=== PATIENT | female | born 1990 ===

== ENCOUNTER → 2020-06-30 14:19 | Outpatient (CLI) | payer OTHER, MEDICAID, SELFPAY ==
--- NOTE | 2020-06-30 | DI.US.S_ITS ---
PROCEDURE: US OB >= 14 WEEKS FETUS INDICATIONS: ANATOMY OUTSIDE/PRIOR DATING DATA: Last menstrual period (LMP): Unknown. LMP-based estimated date of delivery (JUDIE): Unknown . First dating scan (date and location): 06/30/20 . Estimated date of delivery (JUDIE) from first dating scan: 11/15/20 . TECHNIQUE: Real-time scanning was performed of the fetus, with image documentation and biometric measurements. Endovaginal scanning: Not performed COMPARISON: None. FINDINGS: General: A single living intrauterine gestation is present. Presentation: Transverse. Placenta: Placental position is anterior , without previa. Amniotic fluid index: 15.9 cm, normal range is 5-24 cm. heart rate: 141 beats per minute. Maternal cervical canal: 4.2 cm long. Normal lower limit is 2.5 cm. biometrics: Biparietal diameter: 4.7 cm, 20 weeks 2 days Head circumference: 18.0 cm, 20 weeks 3 days Abdominal circumference: 16.2 cm, 21 weeks 2 days Femur length: 3.0 cm, 19 weeks 2 days Estimated gestational age from initial scan: not applicable. Composite gestational age from present scan: 20 weeks 2 days Estimated weight: 350 g Measurement variability for biometric dating: +/- 7 days from 14 weeks to 15 weeks 6 days gestation, +/- 10 days from 16 weeks to 21 weeks 6 days gestation, +/- 2 weeks from 22 weeks to 27 weeks 6 days gestation, +/- 3 weeks for 28 weeks gestation or later. weight reference: 4500 g or EFW >90/95% is considered macrosomia or large for gestational age. EFW <10% is small for gestational age. EFW 5% or less is considered intra-uterine growth restriction. Anatomic survey: Neuro: Ventricles are non-dilated at less than 10 mm. Cisterna magna is normal at 3-11 mm. Cerebellum is normal in size and morphology. Nuchal skin fold: Normal at less than 6 mm between 14-21 weeks gestational age. Face: Nose and lips, facial profile are normal. Spine: No evidence for spina bifida. Heart: 4-chambered heart is present, with normal ventricular outflow tracts. Diaphragm: Diaphragm is intact. Stomach: Left-sided stomach is present. Kidneys: No hydronephrosis. Normal is less than 5 mm in 2nd trimester, less than 7 mm in 3rd trimester. Cord: 3-vessel cord has orthotopic insertion. Bladder: Normal in size. Extremities: All 4 extremities identified. IMPRESSION: Single living intrauterine fetus in transverse presentation with gestational age measuring 20 weeks 2 days by today's ultrasound measurements. Growth assessment precluded by lack of LMP or 1st trimester dating ultrasound. If clinically warranted, a follow-up growth assessment ultrasound could be performed in 3-4 weeks facial profile not well seen secondary to gestational lie. Recommend follow-up. Otherwise, normal anatomic survey Dictated by: Papi Walker M.D. on 06/30/2020 at 16:33 Approved by: Papi Walker M.D. on 06/30/2020 at 16:37
== END ==
PROVIDERS: Referring Provider Nurse Practitioner Obstetrics & Gynecology; Visit Provider Nurse Practitioner Obstetrics & Gynecology
DX: Z36.89 Encounter for other specified antenatal screening (principal); Z3A.20 20 weeks gestation of pregnancy
CPT/HCPCS: 76811

== ENCOUNTER → 2020-07-14 09:12 | Outpatient (CLI) | payer OTHER, MEDICAID, SELFPAY ==
--- NOTE | 2020-07-14 | DI.US.S_ITS ---
PROCEDURE: US OB FOLLOW UP INDICATIONS: FOLLOW UP FACIAL PROFILE OUTSIDE/PRIOR DATING DATA: Last menstrual period (LMP): Unknown. LMP-based estimated date of delivery (JUDIE): Under known. First dating scan (date and location): 06/30/2020. Estimated date of delivery (JUDIE) from first dating scan: 11/15/2020. TECHNIQUE: Real-time scanning was performed of the fetus, with image documentation. Endovaginal scanning: Not performed. COMPARISON: None. FINDINGS: A single living intrauterine gestation is present. Presentation: Vertex. spine is towards maternal right side. Placenta: Placental position is anterior, without previa. Amniotic fluid index: 16.2 cm, normal range is 5-24 cm. heart rate: 157 beats per minute. Maternal cervical canal: 4.2 cm long. Normal lower limit is 2.5 cm. Estimated gestational age from initial scan: 22 weeks, 2 days. facial profile is visualized and is within normal limits on the current study.. IMPRESSION: 1. Single live intrauterine with fetus in cephalic presentation. heart rate is 157 beats per minute. Normal amount of amniotic fluid. Normal cervical canal length. 2. facial profile is visualized on the current study and is within normal limits. Dictated by: Jonah Orozco M.D. on 07/14/2020 at 14:33 Approved by: Jonah Orozco M.D. on 07/14/2020 at 14:35
== END ==
PROVIDERS: Referring Provider Nurse Practitioner Obstetrics & Gynecology; Visit Provider Nurse Practitioner Obstetrics & Gynecology
DX: Z36.2 Encounter for other antenatal screening follow-up (principal); Z3A.22 22 weeks gestation of pregnancy
CPT/HCPCS: 76816

== ENCOUNTER → 2020-09-29 13:21 | Outpatient (ROUT) | payer OTHER, MEDICAID, SELFPAY ==
[2020-09-29 13:36] LABS: Hematocrit 32.9 % (36-46); Hemoglobin 11.1 g/dL (12.0-16.0); Mean Corpuscular HGB Conc 33.8 % (30-36); Mean Corpuscular Hemoglobin 29.1 PG (26-34); Platelet Count 165 X10^3/uL (150-400); Red Blood Cell Count 3.83 X10^6/uL (4.0-5.2); Red Cell Distribution Width 13.2 % (11.6-14.8); White Blood Cell Count 16.2 X10^3/uL (4.5-11.0)
[2020-09-29 13:49] LABS: GTT (PREG) 1 Hour PP 50gm Dose 201 mg/dL (76-139)
== END ==
PROVIDERS: Visit Provider Nurse Practitioner Obstetrics & Gynecology
DX: Z34.90 Encounter for supervision of normal pregnancy, unspecified, unspecified trimester (principal); Z13.1 Encounter for screening for diabetes mellitus; Z3A.32 32 weeks gestation of pregnancy
CPT/HCPCS: 82950; 85027

== ENCOUNTER → 2020-10-15 18:31 | Outpatient (ROUT) | payer OTHER, MEDICAID, SELFPAY | PROVIDERS: Visit Provider Nurse Practitioner Obstetrics & Gynecology | DX: Z34.90 Encounter for supervision of normal pregnancy, unspecified, unspecified trimester (principal); Z36.85 Encounter for antenatal screening for Streptococcus B; Z3A.35 35 weeks gestation of pregnancy | CPT/HCPCS: 87081 ==

== ENCOUNTER 2020-11-07 21:36 | Inpatient (IN) | payer OTHER, MEDICAID, SELFPAY ==
--- NOTE | 2020-11-07 21:49 | P.HPOB_ITS ---
OB HPI Date/Time Date of admission: 11/07/20 Date Patient Seen: 11/07/20 Time Patient Seen: 21:42 History of Present Condition Chief complaint: : 4 Para: 2 Estimated Date of Delivery: 11/17/20 Estimated Gestational Age (weeks): 38.4 Narrative: Anabela Wolf is a 29 year old female her for evaluation of labor. Has been che mildly all day with a few really strong ones recently. Concerned because she was 4cm in clinic yesterday. Feeling lots of FM and has noticed some bloody show tonight. No LOF. care w/ CNM complicated by GDMA1, well controlled. Planning low intervention . History of Present care: good care, initiated at week # (11), number of visits (8) and pounds weight gain (39) Dating criteria: based on 1st trimester US only Ultrasounds: normal mid trimester US Obstetrical complications: gestational diabetes (GDMA1) Medical complications: none Preadmission Labs Blood type: O (+) positive -: Antibody screen: negative, GBS status: negative, HBsAG: negative, HIV: negative and RPR/VDLR: negative -: Chlamydia screen: not detected and Gonorrhea screen: not detected -: Rubella: immune HCT: 32.9 HCAB: negative 1 hr GTT: 201 Narrative: Declined 3hr gtt. Started QID BGs at 33wks and was 100% diet controlled Prior (ies) History: 03/10/08: EAB 11/18/12: NSVB @39wks, 17hr labor, epidural, 7#8oz female, no complications 07/18/18: NSVB @ 39wks, 8 hr labor, unmedicated, 8# female, no complications Evaluation Evaluation Baseline heart rate: 155 Variability: Moderate (11-25) monitor accelerations: Present monitor decelerations: Absent Contraction Frequency (minutes): 4 Uterine Contraction Intensity: Moderate Category of Tracing: Reactive Status: Category l Cervical dilation (cm): 5 Cervical effacement (%): 75 station: -3 [facility] Medical History (Updated 11/07/20 @ 23:07 by Qing Connell CNM) Jaw fracture Surgical History (Updated 11/07/20 @ 23:07 by Qing Connell CNM) History of mandibular surgery Social History (Updated 11/07/20 @ 23:09 by Qing Connell CNM) marital status: number of children: 2 household members: spouse and children lives independently: Yes caregiver/support person: No housing: house occupational status: employed current occupational exposures/hazards: No do you feel safe at home: Yes Meds Home Medications and Allergies Home Medications Medication Instructions Recorded Confirmed Type PNV cmb#95-ferrous fumarate-FA tab PO 11/07/20 History [] Allergies Allergy/AdvReac Type Severity Reaction Status Date / Time No Known Drug Allergies Allergy Verified 11/07/20 22:47 Review of Systems Review of Systems ROS: Yes All systems reviewed with the patient and are negative except as other [place] documented Exam Vital Signs (past 8 hours): BP 113/56, HR-86bpm, T36.7C Temporal Resp Effort & Inspection: normal respiratory effort Auscultation: clear to auscultation bilaterally Cardio Rate: regular rate Rhythm: regular rhythm Heart Sounds: S1 normal and S2 normal Presentation: vertex Estimated Weight (lbs): 8 Objective Labs Result Diagrams: 11/07/20 22:10 Assessment and Plan Assessment and Plan Assessment and Plan narrative: A:Term multipara @ term Approaching active labor GDMA1 Cat I FHR P: Admit, routine orders w/ CBC, T&S, POC glucose and COVID19 swab. Labor support, PRN. Reassess in 2-4 hours. Will consider AROM if minimal progress at that time. OB back-up/ aware of patient admit, status and plan of care.
[2020-11-07 22:42] LABS: Add Manual Diff / Slide Review NO; Basophils Absolute Auto 100 /uL (0-100); Basophils Percent Auto 0.4 % (0-2); Eosinophils Absolute Auto 0 /uL (0-450); Eosinophils Percent Auto 0.3 % (2-4); Hematocrit 34.1 % (36-46); Hemoglobin 11.4 g/dL (12.0-16.0); Lymphocytes Absolute Auto 2500 /uL (1100-4500); Lymphocytes Percent Auto 17.3 % (25-40); Mean Corpuscular HGB Conc 33.3 % (30-36); Mean Corpuscular Hemoglobin 28.2 PG (26-34); Mean Corpuscular Volume 84.5 fL (80-100); Monocytes Absolute Auto 1000 /uL (0-900); Neutrophils Absolute Auto 10800 /uL (1500-7000); Platelet Count 176 X10^3/uL (150-400); Red Blood Cell Count 4.03 X10^6/uL (4.0-5.2); Red Cell Distribution Width 15.1 % (11.6-14.8); White Blood Cell Count 14.3 X10^3/uL (4.5-11.0)
[2020-11-07 22:49] LABS: COVID19 -Nasal RAPID Negative (Negative)
[2020-11-08 00:32] VITALS: BP 113/56
[2020-11-08] MEDS: OXYTOCIN PREMIX 30 UNIT/500 ML PLAST..BAG IV (03:45)
--- NOTE | 2020-11-08 03:53 | PM.OBPRVD ---
Events: Gestational Diabetes (GDMA1) Labor & Delivery Delivery date: 11/08/20 Intrapartal Events: None Cervical ripening method: none Induction method: none Delivery augmentation: rupture of membranes Delivery monitor: external FHT and external uterine Route of delivery: Episiotomy description: None L&D Laceration Description: None Estimated blood loss (mL): 250 Anesthesia Type: Other (Nitrous Oxide x 5 minutes prior to delivery) Narrative: AROM, clear fluid @ 0050 with rapid progression of labor. Patient labored well in the tub and on the bed on hands and knees. Spontaneous urge to push while seated on toilet. Pt was assisted to bed in left side lying position for 2nd stage. Reassuring FHTs by intermittent auscultation throughout first and second stage. Pt requested nitorus which was initiated immediately prior to . NSVB of a vigorous baby girl in DIMITRIOS position w/ no nuchal cord and easy delivery of the shoulders. 30 units of pitocin in 500mL LR was started at 300mL/hr for AMTSL. After cessation of pulsation, the cord was double clamped by CNM and cut by support sister. Hospital cord blood sample was collected. Gentle cord traction and maternal push led to spontaneous, Schultze delivery of an apparently intact placenta membranes and 3VC. Fundus massaged firm. Intact vagina and perineum. QBL 250mL. Both mother and baby stable and skin to skin as I left the room. [place] Baby 1: gender: Female Presentation: vertex Position: Left Occiput Anterior Placenta delivery description: Spontaneous Cord Vessel Description: 3 Vessels score (1 min): 9 score (5 min): 9 Plan for aftercare: Routine care
[2020-11-08] MEDS: KETOROLAC 30 MG/ML VIAL IV (06:03)
[2020-11-08] MEDS: DERMOPLAST SPRAY 20% 60 ML 1 SPRAY TOP (06:20)
[2020-11-08] MEDS: LANOLIN OINT 7 GM 1 APPLIC TOP (06:21)
[2020-11-08] MEDS: ACETAMINOPHEN 325 MG TABLET 650 MG PO ×3 (08:24→20:14)
[2020-11-08] MEDS: OXYCODONE IR 5 MG TABLET PO (08:25)
[2020-11-08] MEDS: DOCUSATE 100 MG CAPSULE PO (08:25)
[2020-11-08] MEDS: PRENATAL VIT,CALC/IRON/FOLIC 1 TABLET 1 TAB PO (08:25)
[2020-11-08] MEDS: IBUPROFEN 600 MG TABLET PO ×2 (14:41→20:13)
[2020-11-09] MEDS: PRENATAL VIT,CALC/IRON/FOLIC 1 TABLET 1 TAB PO (07:57)
[2020-11-09] MEDS: DOCUSATE 100 MG CAPSULE PO (07:57)
[2020-11-09] MEDS: IBUPROFEN 600 MG TABLET PO (07:57)
[2020-11-09] MEDS: ACETAMINOPHEN 325 MG TABLET 650 MG PO (07:58)
[2020-11-09 08:34] VITALS: BP 108/77; PULSE 62; RESP 16; TEMP 36.7
--- NOTE | 2020-11-09 08:35 | PM.OBDS.1 ---
Discharge Providers Provider Date of admission: 11/07/20 21:36 Discharge Date: 11/09/20 Consults: 11/09/20 03:51 Consult to Associate Professor Of Literacy Routine Comment: Discharge provider: Qing Connell CNM Summary Discharge Diagnosis (1) Delivery without complication during current hospitalization: Status: Acute Problem Details: Routine . Pt sitting up in bed her daughter. Voiding, ambulating and independently. Tolerating general diet. Primarily cramping pain with , well controlled w/ ibuprofen and Tylenol. Vaginal bleeding is light, with no clots. She is eager for discharge to home. Time Spent with Patient Time attestation: Total time spent providing and/or coordinating discharge services: 30 Objective Labs Result Diagrams: 11/07/20 22:10 Exam Vital Signs (past 8 hours): BP 108/77, [id number], RR16/min, T98.1F Temporal Other: Fundus firm @ u-1, lochia light, no clots. Perineum intact, minimal edema. Discharge Plan Discharge Plan Patient Disposition: Home Discharge orders & Medications Prescriptions: New acetaminophen 325 mg Tablet 650 mg PO Q6HR PRN (Reason: Pain, Mild (1-3)) 14 Days Qty: 60 RF: 0 ibuprofen 600 mg Tablet 600 mg PO Q6HR PRN (Reason: Pain, Mild (1-3)) 14 Days Qty: 60 RF: 0 Continued PNV cmb#95-ferrous fumarate-FA [] 28 mg iron- 800 mcg tablet 1 tab PO DAILY RF: 0 Follow up/Referrals: Qing Connell CNM [[employer]] - (Foloow-up by Telehealth 11/22/20 @ 11am Follow-up in office 12/12/20 @ 11am) Diet/Activity/Treatments Diet: Regular Activity: pelvic rest x 6 weeks Skin/Wound/Dressing Care Report to your healthcare provider any signs of infection, such as:: chills, fever, increased pain, unusual drainage and unusual redness Visit Report/Discharge Packet Instructions: DI for Depression
== END 2020-11-09 10:20 | disposition home or self-care (01) | DRG 560 ==
PROVIDERS: Admitting Provider Nurse Practitioner Obstetrics & Gynecology; Referring Provider Nurse Practitioner Obstetrics & Gynecology; Visit Provider Nurse Practitioner Obstetrics & Gynecology
DX: O24.420 Gestational diabetes mellitus in childbirth, diet controlled (principal); Z3A.38 38 weeks gestation of pregnancy; Z37.0 Single live birth; Z20.822 Contact with and (suspected) exposure to COVID-19
CPT/HCPCS: 36415; 59050; 85025; 86850; 86900; 86901; 87635; C9803; G0379; J1885; J2590

== ENCOUNTER 2020-12-07 09:51 | Emergency (ER) | payer OTHER, MEDICAID, SELFPAY ==
--- NOTE | 2020-12-07 09:53 | DI.US.S_ITS ---
PROCEDURE: US PELVIC COMPLETE INDICATIONS: BLEEDING 1 MONTH POST TECHNIQUE: Real-time scanning was performed of the pelvic organs, with image documentation. Additional endovaginal scanning was necessary due to incomplete visualization of the adnexal and endometrial structures by transabdominal scanning. COMPARISON: None. FINDINGS: Uterus: Uterus is normal in size at 10.2 x 5.2 x 8.3 cm. The endometrium measures 13 mm in combined thickness, and appears heterogeneous. Ovaries: Within normal limits bilaterally Other: No pathologic free abdominal or pelvic fluid. IMPRESSION: Heterogeneous endometrium, possibly indicating retained products of conception. Follow-up ultrasound is recommended to ensure resolution and to exclude underlying hyperplasia/neoplasm. Dictated by: Priya Burgos M.D. on 12/07/2020 at 10:00 Approved by: Priya Burgos M.D. on 12/07/2020 at 10:01
[2020-12-07 09:57] VITALS: BP 122/77; PULSE 68; RESP 16; TEMP 36.3; O2SAT 99; BMI 33.3
--- NOTE | 2020-12-07 10:01 | ED.GENADULT ---
HPI - General Adult General Chief complaint: OB/Uterine Contractions Stated complaint: POST- BLEEDING AND CLOTTING Time Seen by Provider: 12/07/20 09:52 Source: patient Mode of arrival: Ambulatory Limitations: no limitations History of Present Illness HPI narrative: Patient is a 29-year-old female who is approximately 4 weeks status post spontaneous vaginal delivery. She is . She states that her and delivery were unremarkable. She is Rh positive. She states that since the delivery she has had some vaginal spotting. She states that it is enough that she needs to wear a pad during the day however this morning she got up to go to the bathroom and had a sudden gush blood and clots that she states were fairly large. She also had some lower back pain during that time but that has resolved. She also had an episode of lightheadedness. She denies any other medical problems. No bleeding issues. No fevers. Related Data Home Medications Medication Instructions Recorded Confirmed PNV cmb#95-ferrous fumarate-FA 1 tab PO DAILY 11/07/20 11/09/20 [] Allergies Allergy/AdvReac Type Severity Reaction Status Date / Time No Known Drug Allergies Allergy Verified 11/07/20 22:47 Review of Systems Constitutional Constitutional: Denies fever(s), Denies headache(s) and Denies weakness ENT Ears, Nose, Mouth, and Throat: Denies headache(s) Cardiovascular Cardiovascular: Denies chest pain and Denies dyspnea Respiratory Respiratory: Denies dyspnea Gastrointestinal Gastrointestinal: Denies abdominal pain, Denies change in bowel habits, Denies nausea and Denies vomiting Genitourinary Genitourinary: Denies dysuria Genitourinary: Denies dysuria Musculoskeletal Musculoskeletal: Denies arthralgias and Denies myalgias Integumentary/Breasts Skin/Breast: Denies lesions and Denies rash Neurologic Neurologic: Denies headache(s) and Denies weakness Comments: Lightheadedness Hematologic/Lymphatic Hematologic/Lymphatic: Denies easy bleeding and Denies easy bruising Patient History Medical History Jaw fracture Surgical History (Updated 11/07/20 @ 23:07 by Qing Melton CNM) History of mandibular surgery Social History marital status: number of children: 2 household members: spouse and children lives independently: Yes caregiver/support person: No housing: house occupational status: employed current occupational exposures/hazards: No do you feel safe at home: Yes Smoking Status: Former smoker Smoking Status: Former smoker Exam Initial Vital Signs Initial Vital Signs: Vital Signs Temperature 97.4 F L 12/07/20 09:57 Pulse Rate 68 12/07/20 09:57 Respiratory Rate 16 12/07/20 09:57 Blood Pressure 122/77 12/07/20 09:57 Pulse Oximetry 99 12/07/20 09:57 Const General: cooperative, comfortable and well developed Limitations: mental status not altered HENMT Head: normal to inspection and normocephalic Resp Effort & Inspection: normal respiratory effort Auscultation: clear to auscultation bilaterally Cardio Rate: regular rate Rhythm: regular rhythm GI Inspection: non-distended Palpation: soft, No firm and No tender Skin Lesions: no lesions Rashes: no rashes Neuro General: patient alert and patient awake Cognition: normal cognition Speech: speech normal Extrem General: capillary refill normal Psych Appearance: grossly normal and well kempt Course Orders Ordered: ED Orders 12/07/20 09:53 US pelvic complete Stat 12/07/20 10:03 Basic Metabolic Panel Stat Complete Blood Count AUTO DIFF Stat HCG Quantitative /Beta subunit Stat Vital Signs Vital signs: Vital Signs - 8 hr 12/07/20 09:57 12/07/20 10:46 12/07/20 11:00 Temperature 97.4 F L Pulse Rate 68 64 68 Respiratory Rate 16 Blood Pressure 122/77 Pulse Oximetry 99 99 100 12/07/20 11:01 Temperature Pulse Rate 66 Respiratory Rate Blood Pressure 94/56 L Pulse Oximetry 100 Medical Decision Making Lab Data Lab results reviewed: Yes I reviewed the patient's lab results. Result diagrams: 12/07/20 10:03 12/07/20 10:03 Labs: Lab Results 12/07/20 12/07/20 Range/Units 10:03 10:03 WBC 9.2 (4.5-11.0) X10^3/uL RBC 4.82 (4.0-5.2) X10^6/uL Hgb 13.3 (12.0-16.0) g/dL Hct 40.4 (36-46) % MCV 83.7 (80-100) fL MCH 27.7 (26-34) PG MCHC 33.1 (30-36) % RDW 14.4 (11.6-14.8) % Plt Count 196 (150-400) X10^3/uL Neut % (Auto) 72.1 (50-75) % Lymph % (Auto) 21.0 L (25-40) % Mccormick % (Auto) 5.1 (3-14) % Eos % (Auto) 1.3 L (2-4) % Baso % (Auto) 0.5 (0-2) % Neut # (Auto) 6700 (5878-8681) /uL Lymph # (Auto) 1900 (7986-7186) /uL Mccormick # (Auto) 500 (0-900) /uL Eos # (Auto) 100 (0-450) /uL Baso # (Auto) 100 (0-100) /uL Sodium 138 (137-145) mmol/L Potassium 4.0 (3.4-5.1) mmol/L Chloride 105 (98-107) mmol/L Carbon Dioxide 25 (22-32) mmol/L BUN 8 (7-17) mg/dL Creatinine 0.57 (0.52-1.04) mg/dL Estimated GFR > 60.0 (>60) mL/min BUN/Creatinine Ratio 14.0 (6-22) Glucose 100 (70-100) mg/dL Calcium 9.0 (8.4-10.2) mg/dL HCG, Quant < 2.4 mIU/mL Urine Dip Bedside Urine Glucose Negative Bedside Urine Bilirubin - Negative Bedside Urine Ketone - Negative Urine Specific [place] 1.005 Bedside Urine Occult Blood +++ Bedside Urine pH 6.0 Bedside Urine Protein - Negative Bedside Urine Urobilinogen - Negative Bedside Urine Nitrite - Negative Bedside Urine Leukocytes - Negative Esterase Point of care testing: Urine Dip Bedside Urine Glucose Negative Bedside Urine Bilirubin - Negative Bedside Urine Ketone - Negative Urine Specific [place] 1.005 Bedside Urine Occult Blood +++ Bedside Urine pH 6.0 Bedside Urine Protein - Negative Bedside Urine Urobilinogen - Negative Bedside Urine Nitrite - Negative Bedside Urine Leukocytes - Negative Esterase Imaging Data US - BRAKE REPA[employer]ER AIR: Radiologist's Impression: [address] [id number] ReportSigned Patient: Anabela Wolf RMR#: [id number]: [id number]:[id number]/Sex: 29 / FDate of Service: 12/07/20Loc: EDAccession Number: [id number] Procedure: US pelvic complete Ordering Provider: Titi Escalera D.O. PROCEDURE: US PELVIC COMPLETE INDICATIONS: BLEEDING 1 MONTH POST TECHNIQUE: Real-time scanning was performed of the pelvic organs, with image documentation. Additional endovaginal scanning was necessary due to incomplete visualization of the adnexal and endometrial structures by transabdominal scanning. COMPARISON: None. FINDINGS: Uterus: Uterus is normal in size at 10.2 x 5.2 x 8.3 cm. The endometrium measures 13 mm in combined thickness, and appears heterogeneous. Ovaries: Within normal limits bilaterally Other: No pathologic free abdominal or pelvic fluid. IMPRESSION: Heterogeneous endometrium, possibly indicating retained products of conception. Follow-up ultrasound is recommended to ensure resolution and to exclude underlying hyperplasia/neoplasm. Dictated by: Priya Burgos M.D. on 12/07/2020 at 10:00 Approved by: Priya Burgos M.D. on 12/07/2020 at 10:01 [facility] Narrative Medical decision making narrative: Patient is not anemic. She is not tachycardic. She was able to stand at bedside without becoming lightheaded. She states that her bleeding has improved. I feel that I can hold on a pelvic exam given the ultrasound results and also her vital signs and improvement of her symptoms. Discussed the case with nurse rylee Melton who stated that she discuss the case with Dr. bonds. Plan abuse to send her home with progesterone only pill. This was ordered by MAREK Melton and sent to the pharmacy of the patient's choosing. She was given instructions on its use. She was given return precautions and follow-up instructions. She expressed understanding and agreement. Discharge Plan Departure Patient Disposition: Home Clinical Impression: bleeding Instructions: DI for Vaginal Bleeding Activity Restrictions/Additional Instructions: A prescription for a progesterone only pill was prescribed by nurse rylee melton and sent to the pharmacy of your choice. The instructions for use are that your to take 4 tablets by mouth today, 3 tablets by mouth tomorrow, 2 tablets by mouth on Tuesday and starting Tuesday take 1 tablet by mouth on a daily basis. Recommend that tomorrow you contact your OB provider for a follow-up. Return to the emergency department for any fevers, worsening bleeding that is persistent, continued lightheadedness, her any other new or worsening symptoms. Prescriptions: No Action PNV cmb#95-ferrous fumarate-FA [] 28 mg iron- 800 mcg tablet 1 tab PO DAILY RF: 0
[2020-12-07 10:14] LABS: Add Manual Diff / Slide Review NO; Basophils Absolute Auto 100 /uL (0-100); Basophils Percent Auto 0.5 % (0-2); Eosinophils Absolute Auto 100 /uL (0-450); Eosinophils Percent Auto 1.3 % (2-4); Hematocrit 40.4 % (36-46); Hemoglobin 13.3 g/dL (12.0-16.0); Lymphocytes Absolute Auto 1900 /uL (1100-4500); Mean Corpuscular HGB Conc 33.1 % (30-36); Mean Corpuscular Hemoglobin 27.7 PG (26-34); Mean Corpuscular Volume 83.7 fL (80-100); Monocytes Absolute Auto 500 /uL (0-900); Monocytes Percent Auto 5.1 % (3-14); Neutrophils Absolute Auto 6700 /uL (1500-7000); Neutrophils Percent Auto 72.1 % (50-75); Platelet Count 196 X10^3/uL (150-400); Red Blood Cell Count 4.82 X10^6/uL (4.0-5.2); Red Cell Distribution Width 14.4 % (11.6-14.8); White Blood Cell Count 9.2 X10^3/uL (4.5-11.0)
[2020-12-07 10:25] LABS: Blood Urea Nitrogen 8 mg/dL (7-17); Carbon Dioxide 25 mmol/L (22-32); Chloride 105 mmol/L (98-107); Estimated Glomerular Filt Rate > 60.0 mL/min (>60); Glucose 100 mg/dL (70-100); HEMOLYSIS < 15 (0-50); Sodium 138 mmol/L (137-145)
[2020-12-07 10:42] LABS: HCG Quantitative /Beta subunit < 2.4 mIU/mL
[2020-12-07 10:46] VITALS: PULSE 64; O2SAT 99
[2020-12-07 11:00] VITALS: PULSE 68; O2SAT 100
[2020-12-07 11:01] VITALS: BP 94/56; PULSE 66; O2SAT 100
[2020-12-07 12:29] VITALS: BP 117/77; PULSE 66; RESP 14; TEMP 36.7; O2SAT 98
== END 2020-12-07 12:29 | disposition home or self-care (01) ==
PROVIDERS: Emergency Provider Emergency Medicine
DX: O72.1 Other immediate postpartum hemorrhage (principal); R42 Dizziness and giddiness
CPT/HCPCS: 36415; 76830; 76856; 80048; 81003; 84702; 85025; 99281; 99284

== ENCOUNTER → 2020-12-13 14:13 | Outpatient (ROUT) | payer OTHER, MEDICAID, SELFPAY ==
[2020-12-13 14:40] LABS: Hematocrit 35.6 % (36-46); Hemoglobin 11.8 g/dL (12.0-16.0); Mean Corpuscular HGB Conc 33.2 % (30-36); Mean Corpuscular Hemoglobin 27.8 PG (26-34); Mean Corpuscular Volume 83.7 fL (80-100); Platelet Count 213 X10^3/uL (150-400); Red Blood Cell Count 4.25 X10^6/uL (4.0-5.2); Red Cell Distribution Width 14.8 % (11.6-14.8); White Blood Cell Count 8.9 X10^3/uL (4.5-11.0)
== END ==
PROVIDERS: Visit Provider Nurse Practitioner Obstetrics & Gynecology
DX: N93.9 Abnormal uterine and vaginal bleeding, unspecified (principal)
CPT/HCPCS: 85027

== ENCOUNTER 2021-05-12 17:01 | Emergency (ER) | payer OTHER, MEDICAID, SELFPAY ==
[2021-05-12 17:15] VITALS: PULSE 69; RESP 16; TEMP 36.9; O2SAT 100
[2021-05-12 17:44] LABS: COVID19 -Nasal RAPID Negative (Negative)
--- NOTE | 2021-05-12 19:27 | ED.RECABL ---
HPI - Recheck/Abnormal Lab/Rx General Chief Complaint: Recheck/Abnormal Lab/Rx Stated Complaint: cough/exposure to COVID Time Seen by Provider: 05/12/21 19:25 Source: patient Mode of arrival: Ambulatory History of Present Illness HPI narrative: Patient is an otherwise healthy 30-year-old female here for evaluation of a cough. No fevers. No other reported symptoms. She states that 10 days ago she was around her mother. Has not been around her since that time. Her mother tested positive for COVID today. Patient is here for COVID test. Related Data Home Medications Medication Instructions Recorded Confirmed vit no.95-ferrous 1 tab PO DAILY 11/07/20 11/09/20 fumarate 28 mg-folic acid 800 mcg tablet () Allergies Allergy/AdvReac Type Severity Reaction Status Date / Time No Known Drug Allergies Allergy Verified 11/07/20 22:47 Review of Systems Constitutional Constitutional: Denies fever(s) Cardiovascular Cardiovascular: Reports system reviewed and no additional complaints, except as documented Respiratory Respiratory: Reports cough Gastrointestinal Gastrointestinal: Reports system reviewed and no additional complaints, except as documented Musculoskeletal Musculoskeletal: Reports system reviewed and no additional complaints, except as documented Integumentary/Breasts Skin/Breast: Reports system reviewed and no additional complaints, except as documented Neurologic Neurologic: Reports system reviewed and no additional complaints, except as documented Hematologic/Lymphatic On Anticoagulants: No Allergic/Immunologic Allergic/Immunologic: Reports system reviewed and no additional complaints, except as documented Patient History Medical History Jaw fracture Surgical History (Updated 11/07/20 @ 23:07 by Qing Plunkett CNM) History of mandibular surgery Social History marital status: number of children: 2 household members: spouse and children lives independently: Yes caregiver/support person: No housing: house occupational status: employed current occupational exposures/hazards: No do you feel safe at home: Yes Smoking Status: Former smoker Smoking Status: Former smoker alcohol intake frequency: 0-2 drinks per day Substance Use Type: does not use Exam Initial Vital Signs Initial Vital Signs: Vital Signs Temperature 98.4 F 05/12/21 17:15 Pulse Rate 69 05/12/21 17:15 Respiratory Rate 16 05/12/21 17:15 Pulse Oximetry 100 05/12/21 17:15 Const General: cooperative and healthy appearing [facility] Head: normal to inspection and normocephalic Resp Effort & Inspection: normal respiratory effort Auscultation: clear to auscultation bilaterally Cardio Rate: regular rate Rhythm: regular rhythm Skin General: no rashes or lesions noted Neuro General: patient alert, patient awake and moves all extremities Extrem General: normal to inspection and capillary refill normal Psych Appearance: grossly normal and well kempt Course Orders Ordered: ED Orders 05/12/21 17:26 COVID19 -Nasal swab/Pre-Proc Stat Vital Signs Vital signs: Vital Signs - 8 hr 05/12/21 17:15 Temperature 98.4 F Pulse Rate 69 Respiratory Rate 16 Pulse Oximetry 100 MDM - Recheck/Abnormal Lab/Rx Lab Data Labs: Lab Results 05/12/21 Range/Units 17:26 SARS-CoV-2 (PCR) Negative (Negative) [facility] Narrative Medical decision making narrative: Well-appearing, COVID test is negative. Feel that we can hold on any radiologic studies for now. She was given the results of her COVID test. She was given strict return precautions and follow-up instructions. She expressed understanding and agreement. Discharge Plan Departure Patient Disposition: Home Clinical Impression: Cough Instructions: DI for Cough -- Adult Activity Restrictions/Additional Instructions: Your COVID 19 test today was negative. Prescriptions: No Action PNV cmb#95-ferrous fumarate-FA [] 28 mg iron- 800 mcg tablet 1 tab PO DAILY RF: 0
== END 2021-05-12 19:36 | disposition home or self-care (01) ==
PROVIDERS: Emergency Medicine; Emergency Provider Emergency Medicine
DX: R05 Cough (principal); Z20.822 Contact with and (suspected) exposure to COVID-19
CPT/HCPCS: 87635; 99281; 99282; C9803

== ENCOUNTER 2021-11-30 16:01 | Emergency (ER) | payer OTHER, MEDICAID, SELFPAY ==
[2021-11-30 16:09] VITALS: BP 124/70; PULSE 103; RESP 18; TEMP 36.7; O2SAT 100
--- NOTE | 2021-11-30 16:19 | DI.RAD.S_ITS ---
PROCEDURE: XR LUMBAR SPINE 2-3V INDICATIONS: fall TECHNIQUE: 2 views of the lumbar spine were acquired. COMPARISON: None. FINDINGS: Bones: 5 [id number] vertebrae are present. There is normal bony alignment. No vertebral body compression fractures. No suspicious bony lesions. Soft tissues: Overlying bowel gas pattern is normal. No suspicious soft tissue calcifications. IMPRESSION: Unremarkable lumbar spine radiographs Approved by: Art Barclay M.D. on 11/30/2021 at 15:52
--- NOTE | 2021-11-30 19:18 | ED.BACK ---
HPI - Back Pain/Injury General Chief Complaint: Back Pain/Injury Stated Complaint: fell on rocks, thinks broke back Time Seen by Provider: 11/30/21 19:18 Source: patient History of Present Illness HPI Narrative: 30-year-old female former smoker with noncontributory medical history presents with a chief complaint of a ground level fall in which she landed on her right buttock and now has gradually worsening pain over the course of the day. She states that she was wearing some inappropriate shoes and slipped on the slippery ground and fell onto her low back on the ground. She has full recall denies any head neck or upper back pain. She states that as the course of the day has worn on her pain is worse, particularly with range of motion and palpation. She denies any numbness, tingling or weakness. She denies any trouble controlling bowel or bladder. She takes no blood thinners Related Data Home Medications Medication Instructions Recorded Confirmed vit no.95-ferrous 1 tab PO DAILY 11/07/20 11/09/20 fumarate 28 mg-folic acid 800 mcg tablet () Previous Rx's Medication Instructions Recorded hydrocodone 5 mg-acetaminophen 325 1 tab PO Q4-6H PRN #10 tab 11/30/21 mg tablet ketorolac 10 mg tablet 10 mg PO Q6H PRN #14 tab 11/30/21 lidocaine 5 % topical patch 1 patch TOP DAILY #15 each 11/30/21 (Lidoderm) Allergies Allergy/AdvReac Type Severity Reaction Status Date / Time No Known Drug Allergies Allergy Verified 11/07/20 22:47 Review of Systems Review of Systems Narrative: GENERAL: Denies chills, fatigue, malaise, fever, sweats. HEENT: Denies sinus pain, ear pain, sore throat, difficulty swallowing, dizziness. RESPIRATORY: Denies dyspnea, cough, wheezing, hemoptysis, sputum. CARDIOVASCULAR: Denies chest pain, palpitations, orthopnea, edema, GASTROINTESTINAL: Denies nausea, vomiting, abdominal pain, diarrhea, constipation, melena. : Denies dysuria, frequency, incontinence, hematuria, urinary retention. MUSCULOSKELETAL: See HPI SKIN: Denies rash, skin lesions, or other NEUROLOGIC: Denies weakness, headache, numbness, change in speech, confusion, seizures, incoordination. PSYCHIATRIC: No concerning psychosocial issues. 12 point review of systems is negative except for those stated above Patient History Medical History Jaw fracture Surgical History History of mandibular surgery Social History marital status: number of children: 2 household members: spouse and children lives independently: Yes caregiver/support person: No housing: house occupational status: employed current occupational exposures/hazards: No do you feel safe at home: Yes Smoking Status: Former smoker Smoking Status: Former smoker alcohol intake frequency: 0-2 drinks per day Substance Use Type: does not use Exam Narrative Exam Narrative: GENERAL: [30 year old patient appears stated age. Well-developed patient, in mild distress. Rubbing her lower back, GCS 15, walked in on her own power, though with a slow antalgic gait HEAD: Atraumatic. Normocephalic. EYES: Pupils equal round and reactive. Extraocular motions intact. No scleral icterus. No injection or drainage. ENT: Nose without bleeding, purulent drainage. Throat without erythema, tonsillar hypertrophy or exudate. Airway patent. NECK: Trachea midline. Non tender CARDIOVASCULAR: Regular rate and rhythm without murmurs, gallops, or rubs. RESPIRATORY: Clear to auscultation. Breath sounds equal bilaterally. No wheezes, rales, or rhonchi. GASTROINTESTINAL: Abdomen soft, non-tender, nondistended. EXTREMITIES: No edema or joint tenderness. BACK: Minimal midline lumbar tenderness, no step-offs or crepitance, patient has some tenderness in the absence of erythema, ecchymosis or edema in right buttock. Neurovascular status distal to her injuries intact, no saddle anesthesia. NEURO: AOx3. SKIN: No rash or erythema of visible areas Initial Vital Signs Initial Vital Signs: Vital Signs Temperature 98.1 F 11/30/21 16:09 Pulse Rate 103 H 11/30/21 16:09 Respiratory Rate 18 11/30/21 16:09 Blood Pressure 124/70 11/30/21 16:09 Pulse Oximetry 100 11/30/21 16:09 Course Orders Ordered: Discontinued Medications Hydrocodone Bitart/Acetaminophen (Hydrocodone/Acet 5/325 Tablet) 1 tab PO NOW ONE Stop: 11/30/21 19:29 Last Admin: 11/30/21 19:34 Dose: 1 tab Documented by: SIGIFREDO Ketorolac Tromethamine (Ketorolac 30 Mg/Ml Vial) 30 mg IM NOW ONE Stop: 11/30/21 19:29 Last Admin: 11/30/21 19:35 Dose: 30 mg Documented by: SIGIFREDO Lidocaine (Lidocaine Patch 1 Each Adh..Patch) 1 each TOP NOW ONE Stop: 11/30/21 19:29 Last Admin: 11/30/21 19:35 Dose: 1 each Documented by: SIGIFREDO Vital Signs Vital signs: Vital Signs - 8 hr 11/30/21 19:49 Pulse Rate 90 Respiratory Rate 16 Blood Pressure 126/84 Pulse Oximetry 98 MDM - Back Pain/Injury Lab Data Labs: Point of Care Testing Test Results Negative Urine Dip Bedside Urine Glucose Negative Bedside Urine Bilirubin - Negative Bedside Urine Ketone - Negative Urine Specific [place] 1.015 Bedside Urine Occult Blood - Negative Bedside Urine pH 6.0 Bedside Urine Protein - Negative Bedside Urine Urobilinogen - Negative Bedside Urine Nitrite - Negative Bedside Urine Leukocytes - Negative Esterase Imaging Data L Spine: Radiologist's Impression: [address] [address] XRay Report Signed Patient: Anabela Wolf MR#: [id number] : 1990 Acct:[id number] Age/Sex: 30 / F Date of Service: 11/30/21 Loc: ED Accession Number: [id number] ?? Procedure: XR lumbar spine 2-3V Ordering Provider: Titi Escalera D.O. PROCEDURE:? XR LUMBAR SPINE 2-3V ? INDICATIONS:? fall ? TECHNIQUE:? 2 views of the lumbar spine were acquired.? ? COMPARISON:? None. ? FINDINGS:? ? Bones:? 5 [id number] vertebrae are present.? There is normal bony alignment.? No vertebral body compression fractures.? No suspicious bony lesions.? ? Soft tissues:? Overlying bowel gas pattern is normal.? No suspicious soft tissue calcifications.? ? ? IMPRESSION:? Unremarkable lumbar spine radiographs ? ? ? Approved by: Art Barclay M.D. on 11/30/2021 at 15:52? Discharge Plan Departure Patient Disposition: Home Clinical Impression: Contusion Instructions: DI for Low Back Pain Activity Restrictions/Additional Instructions: *You have been diagnosed with [low back contusion. ] Your history, physical exam and x-rays are very reassuring and there is no evidence of fracture in your back or hip. *What to do: *Please continue to take your regular medications as directed. [ x] New medication prescriptions sent to your pharmacy: [[facility] in [place]] [ ] New medication written as a paper prescription [ ] No new medications given *Please follow up with your primary care provider in 2-3 days, call for an appointment. Let them know you were seen in the Emergency Department and that we ask that you be seen in follow up. We will electronically transmit a record of today's note if your PCP is in our system *If you do not have a primary care provider please contact the [facility] Resource line at [phone]. They will ask some questions about your medical history and help get you set up with a doctor in the community. *Return to Emergency Department if you should have any new, worsening or concerning symptoms, such as [fever greater than 101 F, shaking chills, worsening pain, persistent vomiting or other bothersome symptoms] You have been prescribed a short course of narcotic medications. These are potentially dangerous and addictive medications that should be used carefully. While on these medications you cannot drive or operate heavy machinery. Additionally, you cannot sign legal documents or perform any duties such as this. Many people get constipated on narcotic medications so it would be advisable to discuss stool softeners with the pharmacist when you spanish moss picker your prescription. Please understand that we cannot provide further refills of narcotics or controlled substances through the ED and your pain management will need to be through your Primary Care Provider Prescriptions: New hydrocodone-acetaminophen 5-325 mg tablet 1 tab PO Q4-6H PRN (Reason: pain) Qty: 10 0RF ketorolac 10 mg tablet 10 mg PO Q6H PRN (Reason: pain) Qty: 14 0RF lidocaine [Lidoderm] 5 % adhesive patch,medicated 1 patch TOP DAILY Qty: 15 0RF Rx Instructions: leave on most painful area for 12 hrs No Action PNV cmb#95-ferrous fumarate-FA [] 28 mg iron- 800 mcg tablet 1 tab PO DAILY 0RF Label Comments: Take 1 tablet By Mouth once a day
[2021-11-30] MEDS: HYDROCODONE/ACET 5/325 TABLET 1 TAB PO (19:34)
[2021-11-30] MEDS: LIDOCAINE PATCH 1 EACH ADH..PATCH TOP (19:35)
[2021-11-30] MEDS: KETOROLAC 30 MG/ML VIAL IM (19:35)
--- NOTE | 2021-11-30 19:47 | PC.NURSE ---
Pain in lower back, worse on the right lower back. Denies bowel or bladder problems. Ambulatory. Denies numbness and tingling in lower extremities
[2021-11-30 19:49] VITALS: BP 126/84; PULSE 90; RESP 16; O2SAT 98
== END 2021-11-30 19:49 | disposition home or self-care (01) ==
PROVIDERS: Emergency Provider Emergency Medicine
DX: S30.0XXA Contusion of lower back and pelvis, initial encounter (principal); W01.0XXA Fall on same level from slipping, tripping and stumbling without subsequent striking against object, initial encounter
CPT/HCPCS: 72100; 81003; 81025; 96372; 99283; 99284; J1885